=== PATIENT | male | born 1965 | race Hispanic/Latino ===

== ENCOUNTER 2018-08-19 17:14 | Emergency (ER) | payer SELFPAY ==
--- NOTE | 2018-08-19 19:56 | EDPHYS ---
Physician Documentation [facility] Name: Hi Wetzel Age: 52 yrs Sex: Male : 1965 Arrival Date: 08/19/2018 Time: 17:19 Bed 14 Private MD: None, None ED Physician Chris Savage HPI: 08/19 19:54 This 52 yrs old Male presents to ER via Ambulatory with complaints of Elbow tw4 pain, bumps on back. 08/20 04:24 The patient or guardian complains of pain, that is chronic. The complaints affect the tw4 left elbow. Context: The problem was sustained at an unknown location. Onset: The symptoms/episode began/occurred 2 month(s) ago. Treatment prior to arrival includes: no previous treatment. Modifying factors: The symptoms are alleviated by remaining still, the symptoms are aggravated by movement. The patient presents with lesion on penis. Onset: The symptoms/episode began/occurred 3 month(s) ago. Modifying factors: The symptoms are alleviated by nothing, the symptoms are aggravated by nothing. Associated signs and symptoms: Pertinent negatives: abdominal pain, constipation, diarrhea, dysuria, fever, nausea. Associated signs and symptoms: Pertinent negatives: decreased range of motion, deformity, erythema, fever, nausea, numbness, pain, swelling, tingling, warmth. Severity of symptoms: At their worst the symptoms were. Severity of symptoms: At their worst the symptoms were very mild, in the emergency department the symptoms are unchanged. Historical: - Allergies: 08/19 17:44 NKDA; iw - Home Meds: 17:52 None [Active]; sg - PMHx: 17:52 None; sg - PSHx: 17:44 None; iw - Immunization history:: Adult Immunizations unknown. - Social history:: Smoking status: Patient/guardian denies using tobacco. - Ebola Screening: : No symptoms or risks identified at this time. ROS: 08/20 04:24 Constitutional: Negative for fever, chills, and weight loss, Eyes: Negative for injury, tw4 pain, redness, and discharge, Cardiovascular: Negative for chest pain, palpitations, and edema, Respiratory: Negative for shortness of breath, cough, wheezing, and pleuritic chest pain, Abdomen/GI: Negative for abdominal pain, nausea, vomiting, diarrhea, and constipation. Neuro: Negative for headache, weakness, numbness, tingling, and seizure. : Positive for lesion on penis. MS/extremity: Positive for pain, tenderness. Exam: 04:24 Constitutional: This is a well developed, well nourished patient who is awake, alert, tw4 and in no acute distress. Head/Face: Normocephalic, atraumatic. Chest/axilla: Normal chest wall appearance and motion. Nontender with no deformity. No lesions are appreciated. Cardiovascular: Regular rate and rhythm with a normal S1 and S2. No gallops, murmurs, or rubs. Normal PMI, no JVD. No pulse deficits. Respiratory: Lungs have equal breath sounds bilaterally, clear to auscultation and percussion. No rales, rhonchi or wheezes noted. No increased work of breathing, no retractions or nasal flaring. Abdomen/GI: Soft, non-tender, with normal bowel sounds. No distension or tympany. No guarding or rebound. No evidence of tenderness throughout. Vital Signs: 08/19 17:50 BP 142 / 90; Pulse 87; Resp 17; Temp 98.2; Pulse Ox 100% on R/A; Pain 6/10; sg 19:13 BP 173 / 90; Pulse 63; Resp 16; Temp 98.1; Pulse Ox 100% on R/A; ak1 19:44 BP 134 / 80; Pulse 54; Resp 16; Temp 98.1; Pulse Ox 100% on R/A; ak1 MDM: 19:14 Patient medically screened. tw4 19:54 Medical screen evaluation completed. [facility] emergency medical condition absent. tw4 08/20 04:24 Data reviewed: vital signs, nurses notes. Special discussion: I discussed with the tw4 patient/guardian in detail that at this point there is no indication for admission to the hospital. It is understood, however, that if the symptoms persist or worsen the patient needs to return immediately for re-evaluation. Administered Medications: No medications were administered Disposition: 08/19/18 19:56 Discharged to Home. Impression: Medical screening exam. - Condition is Stable. - Discharge Instructions: Medical Screening Exam. - Medication Reconciliation Form, Thank You Letter, Antibiotic Education, Prescription Opioid Use form. - Follow up: Private Physician; When: Upon discharge from the Emergency Department; Reason: If symptoms return, Recheck today's complaints, Continuance of care. - Problem is new. - Symptoms have improved. Signatures: Wild Ryan RN GLADIS Emili Jacobo RN GLADIS iw More Mccall RN RN ak1 Chris Savage MD MD tw4 Corrections: (The following items were deleted from the chart) 08/19 19:56 19:56 08/19/2018 19:56 Discharged to Home. Impression: Medical screening exam. ak1 Condition is Stable. Forms are Medication Reconciliation Form, Thank You Letter, Antibiotic Education, Prescription Opioid Use. Follow up: Private Physician; When: Upon discharge from the Emergency Department; Reason: If symptoms return, Recheck today's complaints, Continuance of care. Problem is new. Symptoms have improved. tw4
--- NOTE | 2018-08-19 19:56 | ER ---
Nurse's Notes [facility] Name: Hi Wetzel Age: 52 yrs Sex: Male : 1965 Arrival Date: 08/19/2018 Time: 17:19 Bed 14 Private MD: None, None Diagnosis: Medical screening exam Presentation: 08/19 17:50 Presenting complaint: Patient states: Bumps that are hard and pain along the spine of sg my back, bruising to the left elbow but no injury or trauma, reports the bumps on the back are very painful at times and are not allowing him to sleep very well. Transition of care: patient was not received from another setting of care. Onset of symptoms was August 19, 2018. Risk Assessment: Do you want to hurt yourself or someone else? Patient reports no desire to harm self or others. Initial Sepsis Screen: Does the patient meet any 2 criteria? No. Patient's initial sepsis screen is negative. Does the patient have a suspected source of infection? No. Patient's initial sepsis screen is negative. Care prior to arrival: None. 17:50 Method Of Arrival: Ambulatory 17:50 Acuity: SILVESTRE 3 sg Historical: - Allergies: 17:44 NKDA; iw - Home Meds: 17:52 None [Active]; sg - PMHx: 17:52 None; sg - PSHx: 17:44 None; iw - Immunization history:: Adult Immunizations unknown. - Social history:: Smoking status: Patient/guardian denies using tobacco. - Ebola Screening: : No symptoms or risks identified at this time. Screenin:13 Abuse screen: Denies threats or abuse. Denies injuries from another. Nutritional ak1 screening: No deficits noted. Tuberculosis screening: No symptoms or risk factors identified. Fall Risk None identified. Assessment: 19:13 General: Appears in no apparent distress. Behavior is calm, cooperative. Pain: ak1 Complains of pain in back, pelvis and left arm. Neuro: No deficits noted. Cardiovascular: No deficits noted. Respiratory: No deficits noted. GI: No signs and/or symptoms were reported involving the gastrointestinal system. : wart to shaft of penis. EENT: No signs and/or symptoms were reported regarding the EENT system. Derm: cyst to upper back for "years". Musculoskeletal: Reports pain to left elbow due to bruising from unknown injury. 19:44 Reassessment: pt had MSE exam, pt refused to pay or leave. pt was informed politely by ak1 Dr. Savage that pt had non emergent/life threatening conditions that have been chronic for years. pt was given other options as to the [facility], [facility] as well as OTC medications to treat his pain. pt raise his voice and left ER 14. Vital Signs: 17:50 BP 142 / 90; Pulse 87; Resp 17; Temp 98.2; Pulse Ox 100% on R/A; Pain 6/10; sg 19:13 BP 173 / 90; Pulse 63; Resp 16; Temp 98.1; Pulse Ox 100% on R/A; ak1 19:44 BP 134 / 80; Pulse 54; Resp 16; Temp 98.1; Pulse Ox 100% on R/A; ak1 ED Course: 17:19 Patient arrived in ED. mr 17:19 None, None is Private Physician. mr 17:44 Arm band placed on. iw 17:52 Triage completed. sg 19:13 More Mccall, RN is Primary Nurse. ak1 19:13 Chris Savage MD is Attending Physician. tw4 19:13 Patient has correct armband on for positive identification. Placed in gown. Bed in low ak1 position. Call light in reach. Side rails up X 1. Pulse ox on. NIBP on. 19:[address] Savage explanation of MSE procedure and other alternatives for pt to ak seek care for chronic conditions as well as pain management OTC. Administered Medications: No medications were administered Outcome: 19:56 Medical screen evaluation completed per provider. Patient declined treatment. ak1 19:56 Discharge ordered by . tw4 19:56 Patient left the ED. ak Signatures: Wild Ryan, RN GLADIS Harrison, Noemi mr Emili Jacobo RN RN More Mccall, RN GLADIS [facility] Chris Savage MD MD tw4
[2018-08-19 20:03] VITALS: O2SAT 100
[2018-08-19 20:04] VITALS: TEMP 98.1
[2018-08-19 20:06] VITALS: BP 134/80
== END 2018-08-19 19:56 | disposition home or self-care (01) ==
LOC: ER 17:14
DX: Z00.00 Encounter for general adult medical examination without abnormal findings (principal)
CPT/HCPCS: 99283

== ENCOUNTER 2020-01-27 15:41 | Emergency (ER) | payer SELFPAY ==
--- NOTE | 2020-01-27 17:05 | ER ---
Nurse's Notes [facility] Name: Hi Wetzel Age: 54 yrs Sex: Male : 1965 Arrival Date: 01/27/2020 Time: 15:45 Bed 7 Private MD: Diagnosis: Sebaceous cyst-infected Presentation: 01/26 16:01 Chief complaint: Patient states: Abscess on mid back x 1 week. Coronavirus screen: ca1 Client denies travel out of the [place] in the last 14 days. At this time, the client does not indicate any symptoms associated with coronavirus-19. Ebola Screen: Patient negative for fever greater than or equal to 101.5 degrees Fahrenheit, and additional compatible Ebola Virus Disease symptoms Patient denies exposure to infectious person. Patient denies travel to an Ebola-affected area in the 21 days before illness onset. No symptoms or risks identified at this time. Initial Sepsis Screen: Does the patient meet any 2 criteria? No. Patient's initial sepsis screen is negative. Does the patient have a suspected source of infection? No. Patient's initial sepsis screen is negative. Risk Assessment: Do you want to hurt yourself or someone else? Patient reports no desire to harm self or others. Onset of symptoms was January 27, 2020. 16:01 Method Of Arrival: Ambulatory ca1 16:01 Acuity: SILVESTRE 4 ca1 Historical: - Allergies: 16:04 NKDA; ca1 - Home Meds: 16:04 None [Active]; ca1 - PMHx: 16:04 None; ca1 - PSHx: 16:04 None; ca1 - Immunization history:: Adult Immunizations up to date, Last tetanus immunization: < 5 years ago. - Social history:: Smoking status: Patient/guardian denies using tobacco, the patient reports quitting approximately 10 years ago. Screenin:30 Abuse screen: Denies threats or abuse. Denies injuries from another. Nutritional jl7 screening: No deficits noted. Tuberculosis screening: No symptoms or risk factors identified. Fall Risk None identified. Assessment: 16:30 General: Appears in no apparent distress. uncomfortable, Behavior is calm, cooperative, jl7 appropriate for age. Pain: Complains of pain in back Pain currently is 5 out of 10 on a pain scale. Neuro: Level of Consciousness is awake, alert, obeys commands, Oriented to person, place, time, situation, Moves all extremities. Full function. Cardiovascular: Patient's skin is warm and dry. Respiratory: Airway is patent Respiratory effort is even, unlabored, Respiratory pattern is regular, symmetrical. Derm: Skin is pink, warm \T\ dry. Abscess located on back is golf ball sized, is red, is raised. 17:25 Reassessment: Pt will be discharged once ERD lances and drains abscess. jl7 Vital Signs: 16:01 BP 148 / 90; Pulse 84; Resp 15 S; Temp 98.4(O); Pulse Ox 99% on R/A; Weight 90.72 kg ca1 (R); Height 5 ft. 8 in. (172.72 cm) (R); Pain 5/10; 18:00 BP 148 / 89; Pulse 83; Resp 15; Pulse Ox 99% ; jl7 16:01 Body Mass Index 30.41 (90.72 kg, 172.72 cm) ca1 ED Course: 15:45 Patient arrived in ED. as 16:03 Triage completed. ca1 16:04 Arm band placed on right wrist. ca1 16:15 Manjinder Mosher, GLADIS is Primary Nurse. jl7 16:34 Jon Rice MD is Attending Physician. mikala 16:45 Patient has correct armband on for positive identification. Placed in gown. Bed in low jl7 position. Call light in reach. Side rails up X 1. 17:04 Rafat Ayala MD is Referral Physician. mikala 18:42 No provider procedures requiring assistance completed. Patient did not have IV access jl7 during this emergency room visit. Administered Medications: 17:30 Drug: Bactrim (160 mg-800 mg (DS) 1 tablet Route: PO; jl7 18:41 Follow up: Response: No adverse reaction jl7 17:45 Drug: Lidocaine-Epinephrine -1%: (1:100,000) 20 ml {Note: administered by onur Akins.} Volume: 20 ml; Route: Infiltration; 18:41 Follow up: Response: No adverse reaction jl7 18:40 Drug: Neosporin Ointment 1 application Route: Topical; Site: wound; jl7 18:41 Follow up: Response: Medication administered at discharge. jl7 18:41 Drug: Doxycycline 200 mg Route: PO; jl7 18:41 Follow up: Response: Medication administered at discharge. jl7 Outcome: 17:04 Discharge ordered by . mikala 18:42 Discharged to home ambulatory. onur 18:42 Condition: stable 18:42 Discharge instructions given to patient, Instructed on discharge instructions, follow up and referral plans. medication usage, Demonstrated understanding of instructions, follow-up care, medications, Prescriptions given X 3. 18:46 Patient left the ED. jl7 Signatures: Jon Rice MD MD cha Martinez, Amelia as Leal, Jahala RN RN jl7 Minda Burleson RN RN ca1
--- NOTE | 2020-01-27 17:05 | EDPHYS ---
Physician Documentation [facility] Name: Hi Wetzel Age: 54 yrs Sex: Male : 1965 Arrival Date: 01/27/2020 Time: 15:45 Bed 7 Private MD: Jon Gordon HPI: 01/26 16:58 This 54 yrs old Male presents to ER via Ambulatory with complaints of Back mikala Pain. 16:58 The patient presents with pain that is acute, with no known mechanism of injury. The mikala symptoms are located in the thoracic area. Onset: The symptoms/episode began/occurred 3 day(s) ago. The pain does not radiate. Historical: - Allergies: 16:04 NKDA; ca1 - Home Meds: 16:04 None [Active]; ca1 - PMHx: 16:04 None; ca1 - PSHx: 16:04 None; ca1 - Immunization history:: Adult Immunizations up to date, Last tetanus immunization: < 5 years ago. - Social history:: Smoking status: Patient/guardian denies using tobacco, the patient reports quitting approximately 10 years ago. ROS: 16:59 Constitutional: Negative for fever, chills, and weight loss, Eyes: Negative for injury, mikala pain, redness, and discharge, ENT: Negative for injury, pain, and discharge, Neck: Negative for injury, pain, and swelling, Cardiovascular: Negative for chest pain, palpitations, and edema, Respiratory: Negative for shortness of breath, cough, wheezing, and pleuritic chest pain, Abdomen/GI: Negative for abdominal pain, nausea, vomiting, diarrhea, and constipation, : Negative for injury, bleeding, discharge, and swelling, MS/Extremity: Negative for injury and deformity, Neuro: Negative for headache, weakness, numbness, tingling, and seizure, Psych: Negative for depression, anxiety, suicide ideation, homicidal ideation, and hallucinations, Allergy/Immunology: Negative for hives, rash, and allergies, Endocrine: Negative for neck swelling, polydipsia, polyuria, polyphagia, and marked weight changes, Hematologic/Lymphatic: Negative for swollen nodes, abnormal bleeding, and unusual bruising. 16:59 Back: Positive for pain at rest, of the left scapular area. Exam: 16:59 Constitutional: This is a well developed, well nourished patient who is awake, alert, mikala and in no acute distress. Head/Face: Normocephalic, atraumatic. Eyes: Pupils equal round and reactive to light, extra-ocular motions intact. Lids and lashes normal. Conjunctiva and sclera are non-icteric and not injected. Cornea within normal limits. Periorbital areas with no swelling, redness, or edema. ENT: Nares patent. No nasal discharge, no septal abnormalities noted. Tympanic membranes are normal and external auditory canals are clear. Oropharynx with no redness, swelling, or masses, exudates, or evidence of obstruction, uvula midline. Mucous membranes moist. Neck: Trachea midline, no thyromegaly or masses palpated, and no cervical lymphadenopathy. Supple, full range of motion without nuchal rigidity, or vertebral point tenderness. No Meningismus. Chest/axilla: Normal chest wall appearance and motion. Nontender with no deformity. No lesions are appreciated. Cardiovascular: Regular rate and rhythm with a normal S1 and S2. No gallops, murmurs, or rubs. Normal PMI, no JVD. No pulse deficits. Respiratory: Lungs have equal breath sounds bilaterally, clear to auscultation and percussion. No rales, rhonchi or wheezes noted. No increased work of breathing, no retractions or nasal flaring. Abdomen/GI: Soft, non-tender, with normal bowel sounds. No distension or tympany. No guarding or rebound. No evidence of tenderness throughout. Back: No spinal tenderness. No costovertebral tenderness. Full range of motion. Male : Normal genitalia with no discharge or lesions. MS/ Extremity: Pulses equal, no cyanosis. Neurovascular intact. Full, normal range of motion. Neuro: Awake and alert, GCS 15, oriented to person, place, time, and situation. Cranial nerves II-XII grossly intact. Motor strength 5/5 in all extremities. Sensory grossly intact. Cerebellar exam normal. Normal gait. Psych: Awake, alert, with orientation to person, place and time. Behavior, mood, and affect are within normal limits. 16:59 Skin: abscess, that is moderate sized, of the left scapular area, cellulitis, that is minimal, induration, that is moderate is noted. Vital Signs: 16:01 BP 148 / 90; Pulse 84; Resp 15 S; Temp 98.4(O); Pulse Ox 99% on R/A; Weight 90.72 kg ca1 (R); Height 5 ft. 8 in. (172.72 cm) (R); Pain 5/10; 18:00 BP 148 / 89; Pulse 83; Resp 15; Pulse Ox 99% ; jl7 16:01 Body Mass Index 30.41 (90.72 kg, 172.72 cm) ca1 Procedures: 16:59 I \T\ D: Incision and drainage was performed for an abscess of the Prepped with Betadine, mikala Anesthetized with 12 ml's 1% Lidocaine w/ Epi. Incised with #11 blade. Drained moderate amount purulent fluid. SEBACEOUS drainage. 17:03 I \T\ D: Packed with sterile gauze, Dressing: non-Adherent dressing, the patient mikala tolerated the procedure well. MDM: 16:35 Patient medically screened. [facility] 16:59 Data reviewed: vital signs, nurses notes. [facility] 17:05 Differential diagnosis: abscess. 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 Counseling: I had a detailed discussion with the patient and/or guardian regarding: the historical points, exam findings, and any diagnostic results supporting the discharge/admit diagnosis. ED course: explained to the patient the importance of follow up , dr miles. 01/26 16:58 Order name: Dressing - Wound; Complete Time: 17:07 [facility] 01/26 16:58 Order name: Gloves, Sterile; Complete Time: 17:07 [facility] 01/26 16:58 Order name: Setup Suture Tray; Complete Time: 17:07 [facility] 01/26 16:58 Order name: Wound dressing [facility] Administered Medications: 17:30 Drug: Bactrim (160 mg-800 mg (DS) 1 tablet Route: PO; jl7 18:41 Follow up: Response: No adverse reaction jl7 17:45 Drug: Lidocaine-Epinephrine -1%: (1:100,000) 20 ml {Note: administered by onur Akins.} Volume: 20 ml; Route: Infiltration; 18:41 Follow up: Response: No adverse reaction jl7 18:40 Drug: Neosporin Ointment 1 application Route: Topical; Site: wound; jl7 18:41 Follow up: Response: Medication administered at discharge. jl7 18:41 Drug: Doxycycline 200 mg Route: PO; [facility] 18:41 Follow up: Response: Medication administered at discharge. [facility] Disposition: 01/27/20 17:04 Discharged to Home. Impression: Sebaceous cyst - infected. - Condition is Stable. - Discharge Instructions: Skin Abscess, Incision and Drainage, Skin Abscess, [id number], Incision and Drainage, Care After. - Prescriptions for Tylenol- Codeine #3 300-30 mg Oral Tablet - take 2 tablets by ORAL route every 6 hours As needed; 24 tablet. Doxycycline Hyclate 100 mg Oral Tablet - take 1 tablet by ORAL route every 12 hours; 20 tablet. Bactrim DS 800- 160 mg Oral Tablet - take 1 tablet by ORAL route every 12 hours for 10 days; 20 tablet. - Medication Reconciliation Form, Thank You Letter, Antibiotic Education, Prescription Opioid Use form. - Follow up: Private Physician; When: 2 - 3 days; Reason: Recheck today's complaints, Continuance of care, Re-evaluation by your physician. Follow up: Rafat Miles MD; When: 2 - 3 days; Reason: Recheck today's complaints, Re-evaluation by your physician. - Problem is new. - Symptoms have improved. Signatures: Jon Rice MD MD cha Leal, Jahala, RN RN [facility] Minda Burleson RN GLADIS [facility] Corrections: (The following items were deleted from the chart) 18:46 17:04 01/27/2020 17:04 Discharged to Home. Impression: Sebaceous cyst - infected. [facility] Condition is Stable. Forms are Medication Reconciliation Form, Thank You Letter, Antibiotic Education, Prescription Opioid Use. Follow up: Private Physician; When: 2 - 3 days; Reason: Recheck today's complaints, Continuance of care, Re-evaluation by your physician. Follow up: Rafat Miles; When: 2 - 3 days; Reason: Recheck today's complaints, Re-evaluation by your physician. Problem is new. Symptoms have improved. mikala
[2020-01-27] MEDS ORDERED: LIDOCAINE 1% W/EPI 1:100,000 MDV 20 ML VIAL ONE (17:22)
[2020-01-27] MEDS ORDERED: SMZ./TMP. 800/160 MG TABLET ONE (17:22)
[2020-01-27] MEDS ORDERED: DOXYCYCLINE 100 MG CAP PO ONE (17:22)
[2020-01-27 19:16] VITALS: TEMP 98.4; O2SAT 99
[2020-01-27 19:17] VITALS: BP 148/89
== END 2020-01-27 18:46 | disposition home or self-care (01) ==
LOC: ER 15:41
PROC: 0J970ZZ Drainage of Back Subcutaneous Tissue and Fascia, Open Approach (ICD-10-PCS; principal; 2020-01-27)
DX: L72.3 Sebaceous cyst (principal)
CPT/HCPCS: 99283